=== PATIENT | female | born 1950 | race Caucasian/White ===

== ENCOUNTER → 2017-02-04 | Outpatient (CLI) | payer MEDICARE ==
[~2017-02-04] MED LIST: ACYCLOVIR800 MG PO; ALLERGY SHOT SC; ALLERGY SYRING1 EAC1 SC; ALVESCO160 MCG/AC INH; AMLODIPINE10 MG PO; ASPIR 8181 MG; ASPIRIN 81MG TA81 MG PO; ASPIRIN E.C.81 MG PO; ASPIRIN EC325 MG PO; ASPIRIN EC81 MG PO; ASTEPRO205.5 MCG/ INH; ATORVASTATIN 4040 MG PO; B12 IM; B12 INJ.,1000 MCG/M IM; B12 PO; BETAPACE120 MG PO; BYDUREON2 MG SC; CALCIUM 500 + D1 TA1 PO; CALCIUM 600/VIT1 CAP PO; CARAFATE 1GM TAB1 GM PO; CHEW-IRON27 MG PO; COUMADIN 5MG TAB5 MG PO; COZAAR25 M1 PO; CRESTOR40 MG PO; DILTIAZEM240 M1 PO; ECOTRIN325 MG PO; ELIQUIS5 MG PO; EVISTA60 MG PO; FENOFIBRATE160 MG PO; FERROUS SULFAT200 M1; FIBER LAXATIVE PO; FIBER LAXATIVE625 MG OR; FISH OIL PO; FLUCONAZOLE150 MG PO; FLUTICASON0.05 MG/AC NS; FLUTICASONE 50M16 GM; FUROSEMIDE40 MG PO; GABAPENTIN100 MG PO; GLUCOSAMINE & C1 CA1 PO; GLUCOSAMINE SUL PO; HUMALOG PEN100 U/ML; HUMALOG100 U/ML SC; INSULIN GL100 UNITS1 SC; IRON PO; KEFLEX 500MG.500 MG PO; LANTUS INS100 UNITS/ SC; LEVALBUTER1.25 MG/1 IH; LEVOFLOXACIN 7750 M1 PO; LISINOPRIL 20MG20 MG PO; LOPRESSOR 25MG.25 M1 PO; LOPRESSOR 25MG.25 MG PO; LOPRESSOR50 MG PO; LORTAB 5/3251 TAB PO; LORTAB 5/500 501 TAB PO; MAG-OX 400MG T400 MG PO; MAGNESIUM250 M1 PO; MAGOX 400241.3 MG PO; MASON NATURAL1200 MG PO; MECLIZINE25 MG PO; METFORMIN HCL850 M1 PO; METFORMIN HCL850 MG PO; METOPROLOL SUCC50 M1 PO; METOPROLOL25 MG PO; MOBIC15 MG PO; MUCINEX DM 60 M1 TER PO; MULTIVITAMIN1 TA1 PO; MUPIROCIN 2% O1 INC1 TP; NORVASC 5MG. TAB5 MG PO; ONE A DAY VITAMIN PO; PANTOPRAZOLE SO40 MG PO; PATADAY 2.5 ML2.5 ML; PATADAY 2.5 ML2.5 ML OP; PRAVACHOL80 M1 PO; PREDNISONE 10MG10 MG PO; PRILOSEC20 MG PO; PROBIOTIC FORMU1 CA1 PO; PROBIOTIC FORMU1 CAP; PROBIOTIC1 EAC5; QNASL80 MCG/Act; RANITIDINE HCL300 M1 PO; SALMETEROL-F28 PUFF1 IN; SINGULAIR10 MG PO; SOTALOL HCL160 MG PO; SOTALOL HCL80 MG PO; SUSTENEX PO; SYMBICORT1 AE1 IH; TEKTURNA150 MG PO; VITAMIN B122500 MC1; VITAMIN B12500 MCG PO; VITAMIN C500 MG PO; VITAMIN D3 PO; VITAMIN D35000 IU PO; VITAMIN E 400400 IU PO; WARFARIN SODIUM6 MG PO; XOPENEX HF0.045 MG/A IH; XOPENEX HF0.045 MG/A INH; ZYRTEC10 M2 PO; [UNRECOGNIZED DRUG - OTHER] PO; [UNRECOGNIZED DRUG - OTHER] PO
--- NOTE | 2017-02-05 08:01 | RADIOLOGY REPORT PS360 ---
MRI-L-SPINE W/O, MRI-3D RENDERING/MYELOGRAM HISTORY: Low back pain with bilateral leg numbness and tingling SPINAL STENOSIS, LUMBAR REGION, WITHOUT NEUROGENIC CLAUDIC ORDERING PHYSICIAN: Prateek Conrad MD PATIENT AGE: 66 years COMPARISON: 02/07/2015 MRI TECHNIQUE: Standard multiplanar multiecho sequences are performed without contrast. 3-D MIP and myelographic images are also rendered and reviewed FINDINGS: There is normal alignment. Multilevel lumbar spondylosis with degenerative disc disease is present. The spinal cord ends at the T12-L1 level. T10-T11: Degenerative disc disease with bulging disc. T11-T12: Degenerative disc disease with bulging disc and small left paracentral disc protrusion T12-L1: Degenerative disc disease with concentric bulging disc. L1-L2: Unremarkable. L2-L3: Degenerative disc disease with bulging disc along with facet and ligamentum flavum hypertrophy with moderate bilateral lateral recess narrowing and mild bilateral foraminal narrowing. The lateral recess narrowing may be slightly worse on today's exam compared to the previous study. L3-L4: Degenerative disc disease with bulging disc along with a broad-based right paracentral disc protrusion. Moderate facet and ligamentum flavum hypertrophy is present. There is severe canal stenosis along with severe bilateral lateral recess and foraminal narrowing. The canal measures approximately 5 mm. Lateral recess narrowing is more prominent on the right secondary to the disc protrusion. The canal stenosis is worse on today's exam than when compared to the previous study. L4-L5: Minimal anterolisthesis of L4 of 2 mm with facet and ligamentum flavum hypertrophy with right lateral recess and foraminal narrowing. L5-S1: Minimal bulging disc along with facet and ligamentum flavum hypertrophy with mild bilateral foraminal narrowing. IMPRESSION: 1. Multilevel lumbar spondylosis with degenerative disc disease, bulging disc, and facet and ligamentum flavum hypertrophic change. Please see above for detailed description at each level. 2. Degenerative disc disease L2-L3 with bulging disc along with facet and ligamentum flavum hypertrophy with moderate bilateral lateral recess narrowing and mild bilateral foraminal narrowing. The lateral recess narrowing may be slightly worse on today's exam compared to the previous study. 3. Degenerative disc disease at L3-L4 with bulging disc along with a broad-based right paracentral disc protrusion. Moderate facet and ligamentum flavum hypertrophy is present. There is SEVERE CANAL STENOSIS along with SEVERE BILATERAL LATERAL RECESS AND FORAMINAL NARROWING. The canal measures approximately 5 mm. Lateral recess narrowing is more prominent on the right secondary to the disc protrusion. The canal stenosis is worse on today's exam than when compared to the previous study.
== END ==
LOC: RAD 13:21
DX: M48.06 Spinal stenosis, lumbar region (principal)